=== PATIENT | female | born 1985 | race Caucasian/White ===

== ENCOUNTER 2023-06-08 19:22 | Emergency (ER) | payer BC ==
[~2023-06-08] VITALS: Ht 167.6 cm; Wt 86.0 kg
[2023-06-08 19:25] VITALS: PULSE 81; RESP 16; TEMP 98.8; O2SAT 99
[2023-06-08] MEDS ORDERED: CEFD300C3 PO (21:02)
[2023-06-08 21:26] VITALS: BP 136/98
== END 2023-06-08 21:28 | disposition home or self-care (01) ==
LOC: ER 19:24
DX: J02.9 Acute pharyngitis, unspecified (principal); Z79.899 Other long term (current) drug therapy
CPT/HCPCS: 99283